=== PATIENT | female | born 1970 | race Caucasian/White ===

== ENCOUNTER → 2016-09-07 | Outpatient (CLI) | payer BC ==
[~2016-09-07] MED LIST: AMT50 PO; ASPI81TA28 PO; ATOR-24 PO; CHOL1000 PO; CHOL200010 PO; CLON0.5T3 PO; FLUT1INH INH; GABA-113 PO; GABA800T PO; IRBE1TAB50 PO; METF-384 PO; NF656 TD; NORT25CA PO; OXYC-57 PO; PARO1TAB29 PO; PREG100C PO; PREG1CAP28 PO; VITA1TAB4 PO; [UNRECOGNIZED DRUG - OTHER] PO
--- NOTE | 2016-09-07 15:59 | MAMMOGRAPHY REPORT ---
BILATERAL DIGITAL DIAGNOSTIC MAMMOGRAM TOMOSYNTHESIS WITH CAD AND TARGETED BILATERAL ULTRASOUND: 09/07 CLINICAL HISTORY: The patient reports a palpable lump in her left breast felt by her physician, edward mortensen has been evaluated previously. The patient reports that it has not changed clinically. TECHNIQUE: Breast tomosynthesis in addition to standard 2D mammography was performed. Current study was also evaluated with a Computer Aided Detection (CAD) system. Bilateral CC and MLO 2-D and shasha synthesis images were obtained. COMPARISON: Comparison is made to exams dated: 12/02/2015 mammogram, 06/02/2015 mammogram, 12/02/2015 ultrasound, 03/09/2011 mammogram, and 03/09/2011 ultrasound - [facility]. BREAST COMPOSITION: There are scattered areas of fibroglandular density in both breasts. FINDINGS: There is an oval circumscribed 7 mm mass seen within the right upper outer quadrant, whic h appears more prominent compared to the 2014 exam. The remainder of both breasts are stable mammog raphically compared to prior exams, without suspicious masses, calcifications, or areas of senior data architect ural distortion noted. Scattered bilateral benign-appearing calcifications are stable. Targeted ultrasound was performed of the right breast in the region of the mammographic mass. In th e right breast at 9:00, 5 cm from the nipple, there is an oval circumscribed anechoic mass with thin internal septations, measuring 5 x 1 x 6 mm. This corresponds with the mammographic mass and is co nsistent with a benign cyst. Targeted ultrasound was performed of the left breast in the region of the palpable lump pointed out by the patient, at 11:30 approximately 8 cm from the nipple. Sonographically normal tissue is seen in this region, without evidence of a mass or other suspicious sonographic abnormality. IMPRESSION: ACR BI-RADS CATEGORY 2: BENIGN, TARGETED ULTRASOUND ACR BI-RADS CATEGORY 2: BENIGN No suspicious mammographic or sonographic abnormality at the site of the palpable left breast lump p ointed out by the patient. There is no mammographic or targeted sonographic evidence of malignancy. Recommend clinical follow-up for the left breast lump, and recommend routine bilateral screening m ammograms in one year. The patient has been verbally notified of the results. Approximately 10% of breast cancers are not detected with mammography. A negative mammographic repor t should not delay biopsy if a clinically suggestive mass is present. Montserrat Matos M.D. ah/:09/07/2016 14:50:08 [employer] Manager: Mikayla REGAN)(Duy), [facility] letter sent: Normal /2 BI-RADS Code: ACR BI-RADS Category 2: Benign Ultrasound BI-RADS: ACR BI-RADS Category 2: Benign
== END | disposition home or self-care (01) ==
LOC: C.MAMM 13:29
PROVIDERS: ATTEND Surgery
DX: N63 Unspecified lump in breast (principal)

== ENCOUNTER 2016-10-24 19:48 | Emergency (ER) | payer BC ==
[~2016-10-24] VITALS: Ht 149.9 cm; Wt 72.0 kg
[~2016-10-24 19:48] MED LIST changes: -AMT50 PO; -CHOL200010 PO; -FLUT1INH INH; -GABA-113 PO; -GABA800T PO; -NF656 TD; -OXYC-57 PO; -PREG100C PO; -VITA1TAB4 PO
[2016-10-24 19:56] VITALS: TEMP 36.7; O2SAT 97; Ht 149.9 cm; Wt 72.0 kg
[2016-10-24] MEDS ORDERED: ONDANSETRON INJ 2 MG/ML 2 ML VIAL IV STA (20:11)
[2016-10-24] MEDS ORDERED: HYDROmorphone INJ 1 MG/ML SYR IV STA (20:11)
[2016-10-24] MEDS ORDERED: SODIUM CHLORIDE 0.9% 1000ML 1,000 ML IV STA (20:11)
[2016-10-24] MEDS ORDERED: KETOROLAC TROMETHAMINE 30 MG/ML VIAL IV STA (20:11)
--- NOTE | 2016-10-24 20:13 | EMERGENCY ROOM VISIT NOTE ---
History Report prepared by Jackie: Jorge Alberto Mondragon Under the Supervision of: Dr. Jem Napoles M.D. First contact with patient: 20:00 Chief Complaint: BACK PAIN Stated Complaint: LOWER BACK PAIN;SHOOTS DOWN BOTH LEGS History of Present Illness The patient is a 46 year old female who presents to the Emergency Room with complaints of persistent lower back pain that started 5 days ago. The patient states that the discomfort radiates down to both feet. The discomfort worsened 2 days ago. She complains of worsening numbness in her hands and feet. The patient has a history of neuropathy and pinched nerves in both her cervical and lumbar spine. However, she states that her discomfort is different than usual since her pain is worse. The patient presented to Fabiola Gonzalez PA-C earlier today who gave her a steroid shot and a prescription for Prednisone and Hydrocodone. The patient notes that these medications have not helped relieve her symptoms at all. Her last dose of Hydrocodone was about 5 hours ago. The patient denies any loss of control of her bowels or bladders. However, she does notice that she seems to be having difficulty passing urine. Source of History: patient Onset: 5 days ago Position: back (lower) Timing: worsening, other (persistent) Associated Symptoms: + numbness (in bilateral hands and feet) Note: Other associated symptoms: radiation to feet, ,difficulty passing urine Denies: loss of control of her bowel or bladder Review of Systems See HPI for pertinent positives & negatives. A total of 10 systems reviewed and were otherwise negative. Past Medical & Surgical Medical Problems: (1) Bulging disc (2) Cervical stenosis of spinal canal (3) Diabetes (4) Hemorrhagic cerebrovascular accident (CVA) Family History No pertinent family history Social History Smoking Status: Current Every Day Smoker Alcohol Use: occasionally Marital Status: Housing Status: lives with significant other Occupation Status: unemployed Current/Historical Medications Scheduled Aspirin (Aspirin Ec), 81 MG PO DAILY Atorvastatin (Lipitor), 1 TAB PO QPM Cholecalciferol (Vitamin D), 1 CAP PO DAILY Irbesartan (Irbesartan), 1 TAB PO DAILY Lidocaine (Lidoderm Patch 5%), 1 PATCH TD DIRECTED Metformin Hcl (Glucophage), 1,000 MG PO BID Nortriptyline (Pamelor), 25 MG PO HS Paroxetine (Paxil), 1 TAB PO DAILY Pregabalin (Lyrica), 100 MG PO TID [forxiga], 1 TAB PO DAILY Scheduled PRN Clonazepam (Klonopin), 0.5 MG PO DAILY PRN for Anxiety Oxycodone/Acetaminophen 5MG/325MG (Percocet 5MG/325MG), 1-2 TAB PO Q4H PRN for Pain Allergies Coded Allergies: Clarithromycin (Verified Allergy, Intermediate, RASH, 10/12/15) Nitrofurantoin (Verified Allergy, Intermediate, HIVES, 10/12/15) Sulfamethoxazole w/Trimethoprim (Verified Allergy, Intermediate, ? reaction, 10/12/15) Physical Exam Vital Signs Date Time Temp Pulse Resp B/P Pulse Ox O2 Delivery O2 Flow Rate FiO2 10/24/16 22:53 88 14 97/57 10/24/16 21:35 76 104/71 10/24/16 19:56 36.7 81 16 147/91 97 Room Air Physical Exam GENERAL: Patient is a healthy-appearing well-nourished HEAD: Normocephalic atraumatic EYES: Ocular movements intact pupils equal and react to light OROPHARYNX mucous membranes are moist no exudates present no erythema or edema present NECK: Supple no nuchal rigidity CHEST: Good equal expansion LUNGS: Clear and equal to auscultation CARDIAC: Normal S1 and S2 ABDOMEN: Soft nontender no guarding BACK: No CVA tenderness EXTREMITIES: No pain upon palpation normal muscle strength in all groups no clubbing cyanosis or edema. NEURO: Patient is following commands is answering questions appropriately. Alert and oriented x3 Cranial Nerves 2-12 grossly intact. Able to walk on tippy- toes and heels. No evidence of saddle anesthesia. Medical Decision & Procedures ER Provider Diagnostic Interpretation: Radiology results as stated below per my review and radiologist interpretation: MRI LUMBAR SPINE W/O CONTRAST CLINICAL HISTORY: Low back pain with bilateral leg radiculopathy. TECHNIQUE: Sagittal and axial T1, T2 and STIR images were obtained. COMPARISON STUDY: No previous studies for comparison. OBSERVATIONS: The vertebral bodies and posterior elements appear intact. There is no abnormal bony signal present to suggest a marrow replacement process. L1-2: No disc protrusions or extrusions. No evidence of spinal canal or neural foraminal compromise. L2-3: No disc protrusions or extrusions. No evidence of spinal canal or neural foraminal compromise. L3-4: No disc protrusions or extrusions. No evidence of spinal canal or neural foraminal compromise. L4-5: There is a circumferential disc bulge. There is mild spinal canal narrowing. There is mild left-sided foraminal narrowing. L5-S1: No disc protrusions or extrusions. No evidence of spinal canal or neural foraminal compromise. The conus medullaris and cauda equina appear normal. IMPRESSION: L4-5 disc bulge with mild spinal canal narrowing and mild left-sided foraminal narrowing. Electronically signed by: Tomy Ashby M.D. 10/24/2016 9:31 PM Dictated Date/Time: 10/24/2016 9:27 PM Medications Administered Medications (Trade) Dose Ordered Sig/Peace Route Start Time Stop Time Status Last Admin Dose Admin Ketorolac Tromethamine 30 mg 30 mg NOW STAT IV 10/24/16 20:11 10/24/16 20:13 DC 10/24/16 20:38 30 MG Sodium Chloride (Nss 1000ml) 1,000 ml @ 999 mls/hr Q1H1M STAT IV 10/24/16 20:11 10/24/16 21:11 DC 10/24/16 20:11 999 MLS/HR Hydromorphone HCl (Dilaudid Inj) 1 mg NOW STAT IV 10/24/16 20:11 10/24/16 20:13 DC 10/24/16 20:39 1 MG Ondansetron HCl (Zofran Inj) 4 mg NOW STAT IV 10/24/16 20:11 10/24/16 20:13 DC 10/24/16 20:38 4 MG Lorazepam (Ativan Inj) 1 mg NOW PRN IV 10/24/16 20:15 10/24/16 23:24 DC 10/24/16 20:39 1 MG Lidocaine (Lidoderm Patch 5%) 1 patch NOW STAT TD 10/24/16 22:14 10/24/16 22:16 DC 10/24/16 22:49 1 PATCH Oxycodone/ Acetaminophen (Percocet 5/ 325MG Home Pack) 1 homepack UD ONCE PO 10/24/16 22:30 10/24/16 22:31 DC 10/24/16 22:48 1 HOMEPACK ED Course 2003: Past medical records reviewed. The patient was evaluated in room A10. A complete history and physical examination was performed. 2011: Ordered Zofran Inj 4 mg IV, Dilaudid Inj 1 mg IV, NSS 1000 ml @ 999 mls/ hr IV, Toradol Inj 30 mg IV. 2014: Ordered Ativan Inj 1 mg IV. 2116: At this time, I reevaluated the patient and she was starting to feel better. 2213: Ordered Lidocaine 1 patch TD. 2229: Ordered Oxycodone. Acetaminophen 1 homepack PO. 2236: Upon reexamination the patient is resting. I discussed results and treatment plan with the patient. She verbalizes agreement and understanding. The patient is ready for discharge. Medical Decision Differential diagnosis: Etiologies such as musculoskeletal, disc herniation, fracture, aortic disease, metastatic disease, cord compression, discitis, infection, renal colic, gastrointestinal, acute exacerbation of chronic back pain, sciatica, cauda equina, as well as others were entertained. This is a 46-year-old female who presents emergency department complaining of bilateral back pain that runs down her legs. I will note that the patient is able to walk on her tiptoes and her heels however she is concerned that she has been having difficulty urinating. Based on this finding the patient was sent for an MRI of her back. This showed a mild disc bulge. The patient was also given Dilaudid and Toradol for the pain as well as Zofran. Repeat examination revealed improvement the patient's symptoms. I do believe that the patient is well enough to be discharged home for follow-up with orthopedics. The patient was given a Lidoderm patch for her lower back I will placed on ibuprofen as well as Percocet. Patient was in agreement with the treatment plan. Impression Primary Impression: Lumbar back pain Additional Impression: Sciatica Scribe Attestation The scribe's documentation has been prepared under my direction and personally reviewed by me in its entirety. I confirm that the note above accurately reflects all work, treatment, procedures, and medical decision making performed by me. Departure Information Dispostion Home / Self-Care Prescriptions Oxycodone/Acetaminophen 5MG/325MG (PERCOCET 5MG/325MG) Tab 1-2 TAB PO Q4H Y for Pain, #14 TAB Prov: Jem Napoles MD 10/24/16 Lidocaine (Lidoderm Patch 5%) 1 Ea Tdsy 1 PATCH TD DIRECTED, #2 PATCH Prov: Jem Napoles MD 10/24/16 Referrals Chetan Owens M.D. (PCP) Forms HOME CARE DOCUMENTATION FORM, IMPORTANT VISIT INFORMATION Patient Instructions Back Pain - [facility], ED Back Care Tips, ED Back Pain Acute Chronic, ED Sciatica, ED Smoking Cessation, Exercises Back Lower Back Stretch, Exercises Back Seated Rotation, My [facility] [employer] Additional Instructions Remove Lidoderm patch in 12 hours (1230 AM) Follow up with DR Almonte's office You received narcotic or benzodiazepene medication while in the emergency room today. Do not drive, operate heavy machinery, or drink alcohol under the influence of this medication. Take 600 mg Ibuprofen every 6 hours Take Percocet for breakthrough pain You have been examined and treated today on an emergency basis only. This is not a substitute for, or an effort to provide, complete comprehensive medical care. It is impossible to recognize and treat all injuries or illnesses in a single emergency department visit. It is therefore important that you follow up closely with Dr Owens. Call as soon as possible for an appointment. Thank you for your time and consideration. I look forward to speaking with you again soon. Please don't hesitate to call us if you have any questions. Problem Qualifiers Primary Impression: Lumbar back pain Chronicity: acute Back pain laterality: bilateral Sciatica presence: with sciatica Sciatica laterality: bilateral sciatica Qualified Codes: M54.42 - Lumbago with sciatica, left side; M54.41 - Lumbago with sciatica, right side Additional Impression: Sciatica Laterality: bilateral Qualified Codes: M54.31 - Sciatica, right side; M54.32 - Sciatica, left side
[2016-10-24] MEDS ORDERED: LORAZEPAM 2 MG/ML 1 ML VIAL IV PRN (20:15)
[2016-10-24] MEDS ORDERED: CHOL200010 PO (20:35)
[2016-10-24] MEDS ORDERED: PREG100C PO (20:38)
--- NOTE | 2016-10-24 21:33 | DIAGNOSTIC IMAGING REPORT ---
MRI LUMBAR SPINE W/O CONTRAST CLINICAL HISTORY: Low back pain with bilateral leg radiculopathy. TECHNIQUE: Sagittal and axial T1, T2 and STIR images were obtained. COMPARISON STUDY: No previous studies for comparison. OBSERVATIONS: The vertebral bodies and posterior elements appear intact. There is no abnormal bony signal present to suggest a marrow replacement process. L1-2: No disc protrusions or extrusions. No evidence of spinal canal or neural foraminal compromise. L2-3: No disc protrusions or extrusions. No evidence of spinal canal or neural foraminal compromise. L3-4: No disc protrusions or extrusions. No evidence of spinal canal or neural foraminal compromise. L4-5: There is a circumferential disc bulge. There is mild spinal canal narrowing. There is mild left-sided foraminal narrowing. L5-S1: No disc protrusions or extrusions. No evidence of spinal canal or neural foraminal compromise. The conus medullaris and cauda equina appear normal. IMPRESSION: L4-5 disc bulge with mild spinal canal narrowing and mild left-sided foraminal narrowing. Electronically signed by: Tomy Ashby M.D. 10/24/2016 9:31 PM Dictated Date/Time: 10/24/2016 9:27 PM
[2016-10-24] MEDS ORDERED: LIDODERM (LIDOCAINE) PATCH 5% TD STA (22:14)
[2016-10-24] MEDS ORDERED: NF656 TD (22:24)
[2016-10-24] MEDS ORDERED: OXYC-57 PO (22:25)
[2016-10-24] MEDS ORDERED: PERCOCET HOME PACK PO ONE (22:30)
[2016-10-24 22:53] VITALS: BP 97/57; PULSE 88
[2016-11-23] MEDS ORDERED: VITA1TAB4 PO (08:48)
[2016-11-23] MEDS ORDERED: FLUT1INH INH (09:19)
[2017-01-06] MEDS ORDERED: GABA-113 PO (10:45)
[2017-02-27] MEDS ORDERED: AMT50 PO (09:09)
== END 2016-10-24 22:50 | disposition home or self-care (01) ==
LOC: C.EDB 19:50 → C.EDA 22:50
DX: M54.5 Low back pain (principal); M54.30 Sciatica, unspecified side; E11.9 Type 2 diabetes mellitus without complications; M48.02 Spinal stenosis, cervical region; F17.200 Nicotine dependence, unspecified, uncomplicated; Z86.73 Personal history of transient ischemic attack (TIA), and cerebral infarction without residual deficits; Z79.82 Long term (current) use of aspirin; Z79.84 Long term (current) use of oral hypoglycemic drugs; Z79.899 Other long term (current) drug therapy; Z88.2 Allergy status to sulfonamides; Z88.3 Allergy status to other anti-infective agents; Z88.8 Allergy status to other drugs, medicaments and biological substances

== ENCOUNTER → 2016-11-03 | Outpatient (CLI) | payer BC ==
[~2016-11-03] MED LIST changes: +AMT50 PO; -CHOL1000 PO; +CHOL200010 PO; +FLUT1INH INH; +GABA-113 PO; +NF656 TD; +OXYC-57 PO; +PREG100C PO; -PREG1CAP28 PO; +VITA1TAB4 PO
--- NOTE | 2016-11-03 16:54 | DIAGNOSTIC IMAGING REPORT ---
CHEST 2 VIEWS ROUTINE HISTORY: J20.9 Acute [id number] COMPARISON: Chest 09/14/2015. FINDINGS: The lungs are clear. Cardiac silhouette is normal in size. No pleural effusions. No pneumothorax. Cervical spinal fusion hardware. IMPRESSION: No acute process. Electronically signed by: Clifton Mancini M.D. 11/03/2016 4:53 PM Dictated Date/Time: 11/03/2016 4:52 PM
== END | disposition home or self-care (01) ==
LOC: C.RAD 15:50
PROVIDERS: ATTEND Physician Assistant Medical
DX: J20.9 Acute bronchitis, unspecified (principal)

== ENCOUNTER → 2016-11-23 | Day surgery (SDC) | payer BC ==
[~2016-11-23] VITALS: Ht 152.4 cm; Wt 70.5 kg
[2016-11-23] VITALS (11 sets, daily range): BP systolic 96–128; BP diastolic 59–80; PULSE 78–100; TEMP 36.6–36.8; O2SAT 92–97; Ht 152.4 cm; Wt 70.5 kg
[~2016-11-23] MED LIST changes: +ACETAMINOPHEN 500 MG TAB PO PRN; +CLONAZEPAM 0.5 MG TAB PO ONE; +NURSING VERBAL MED ORDER ONE
--- NOTE | 2016-11-23 10:22 | Discharge Instructions ---
Discharge Instructions Procedure Procedure Date: November 23, 2016. Reason for visit: Cord Compression, Cervical. Discharge Discharge Date: November 23, 2016. Discharge Diagnosis: neuropathy Instructions Activity Recommendations: 1 Day-May resume regular activity, 48 Hours of decreased exertion, 1 Day with no driving/machine use Return to School/Work: no limitations Recommended Home Diet: Resume Previous Diet Provider Instructions: Lumbar Puncture performed with Fluoroscopic guidance [ L45] level with [ 25] needle. No complications. Cervical myelogram without complication. Allergies Coded Allergies: Clarithromycin (Verified Allergy, Intermediate, RASH, 11/23/16) Nitrofurantoin (Verified Allergy, Intermediate, HIVES, 11/23/16) Sulfamethoxazole w/Trimethoprim (Verified Allergy, Intermediate, hives, ) [place] Recommendations: Call your doctor if: * Temperature above 101 degrees * Pain not relieved by pain medicine ordered * There is increased drainage or redness from any incision * You have any unanswered questions or concerns. Your Doctors Instructions noted above were prepared by provider Familia Vaz. Patient Signature Section: Patient Instructions Signature Page Shonna Long Patient (or Guardian) Signature/Date: I have read and understand the instructions given to me by my caregivers. Caregiver/RN/Doctor Signature/Date: The above-named patient and/or guardian has received patient instructions on this date. + Original Patient Signature Page (only) stays with chart. Please make copy for patient.
--- NOTE | 2016-11-23 10:36 | DIAGNOSTIC IMAGING REPORT ---
Cervical myelogram MYELOGRAM, SUPER/INTER CERVICAL CLINICAL HISTORY: Core compression neuropathy read pain. TECHNIQUE: Following description of procedure and informed consent, a 25-gauge needle was inserted to the L4-L5 level lumbar spine. 10 cc nonionic contrast was injected. FINDINGS: This is followed by imaging of the cervical spine. There is evidence for an anterior fusion from C5 through C7. Routine images of the cervical region showed no significant compromise of the spinal canal. There is a potential very slight disc bulge at C3-C4. There were no complications. COMPARISON STUDY: None IMPRESSION: Successful cervical myelogram. CT is pending. Findings consistent anterior fusion from C5 through C7. No significant compromise of the spinal canal or neural foramina based on routine imaging Electronically signed by: Familia Vaz M.D. 11/23/2016 10:35 AM Dictated Date/Time: 11/23/2016 10:31 AM
--- NOTE | 2016-11-23 10:43 | DIAGNOSTIC IMAGING REPORT ---
CT cervical myelogram CERVICAL SPINE WITH CLINICAL HISTORY: myelogram m47.812 pain. Neuropathy. TECHNIQUE: Transaxial acquisition. Multiple axial reformatted images. Myelography. COMPARISON STUDY: MRI cervical spine dated 03/31/2016 FINDINGS: Findings of an anterior cervical fusion from C5 through C7. Disc spacers are present at C5-C6 and C6-C7. Vertebral body stature is normal throughout. Intervertebral discs are well-preserved. Transaxial images throughout the entire cervical region are considered negative for disc herniation or spinal stenosis. There is no significant foraminal stenosis. IMPRESSION: 1. Operative changes consistent with an anterior cervical fusion from C5 through C7. 2. No evidence of disc herniation or spinal stenosis. 3. Normal postoperative study Electronically signed by: Familia Vaz M.D. 11/23/2016 10:42 AM Dictated Date/Time: 11/23/2016 10:38 AM
== END | disposition home or self-care (01) ==
LOC: C.ACU 08:24
PROVIDERS: ATTEND Orthopaedic Surgery Orthopaedic Surgery of the Spine
DX: M47.812 Spondylosis without myelopathy or radiculopathy, cervical region (principal)

== ENCOUNTER 2017-09-24 10:17 | Emergency (ER) | payer SELFPAY ==
[~2017-09-24] VITALS: Ht 152.4 cm; Wt 72.7 kg
[~2017-09-24 10:17] MED LIST changes: -ACETAMINOPHEN 500 MG TAB PO PRN; -CLONAZEPAM 0.5 MG TAB PO ONE; -NF656 TD; -NORT25CA PO; -NURSING VERBAL MED ORDER ONE; -OXYC-57 PO; -PREG100C PO
[2017-09-24 10:31] VITALS: TEMP 36.9; Ht 152.4 cm; Wt 72.7 kg
[2017-09-24 12:04] LABS: BASO % 0.6 %; BASO ABS # 0.07 K/uL (0-0.2); EOS % 0.6 %; EOS ABS # 0.07 K/uL (0-0.5); HEMATOCRIT 45.2 % (37-47); HEMOGLOBIN 16.5 g/dL (12.0-16.0); IG# 0.04 K/uL (0.00-0.02); LYMPH % 31.1 %; LYMPH ABS # 3.37 K/uL (1.2-3.4); MEAN CELL VOLUME 93.2 fL (80-100); MEAN CORPUSCULAR HGB CONC 36.5 g/dl (32-36); MEAN PLATELET VOLUME 10.6 fL (7.4-10.4); MONO % 5.5 %; NEUT % 61.8 %; NEUT ABS # 6.69 K/uL (1.4-6.5); PLATELET COUNT 200 K/uL (130-400); RED CELL DISTRIBUTION WIDTH SD 44.6 fL (36.4-46.3); WHITE BLOOD COUNT 10.84 K/uL (4.8-10.8)
[2017-09-24] MEDS ORDERED: PARO30TA3 PO (12:15)
[2017-09-24] MEDS ORDERED: MAGN400T6 PO (12:15)
[2017-09-24] MEDS ORDERED: PENI-82 PO (12:15)
[2017-09-24] MEDS ORDERED: LISI20TA3 PO (12:15)
[2017-09-24] MEDS ORDERED: NORT25CA PO (12:15)
[2017-09-24] MEDS ORDERED: CHOL1CAP30 PO (12:15)
[2017-09-24 12:21] LABS: INR 0.9 (0.9-1.1); PTT PATIENT 29.6 SECONDS (21.0-31.0)
[2017-09-24 12:28] LABS: ALBUMIN 3.5 gm/dl (3.4-5.0); CREATININE 0.59 mg/dl (0.60-1.20); POTASSIUM 4.3 mmol/L (3.5-5.1)
[2017-09-24 12:30] LABS: TOTAL PROTEIN 7.7 gm/dl (6.4-8.2)
--- NOTE | 2017-09-24 13:55 | DIAGNOSTIC IMAGING REPORT ---
ORBITS/SELLA/TEMP WITHOUT HISTORY: 47 years-old Female eye pain bilaterally acute bilateral pain COMPARISON: Brain MRI 03/31/2016 TECHNIQUE: Multiple axial CT images of the orbits were obtained without IV contrast. A dose lowering technique was used consistent with the principals of REGINALDO. FINDINGS: Mastoid air cells and middle ear cavities are clear. Minimal right maxillary sinus disease. Moderate sized left jose bullosa. Mild rightward bowing and spurring of the nasal septum. There is no acute facial bone fracture or dislocation identified. Imaged cervical spine appears intact. Degenerative changes are noted at C1-C2. The imaged mandible appears intact. No orbital fracture identified. Imaged mandibular teeth are unremarkable. Imaged intracranial structures demonstrate no acute abnormality. Soft tissues are unremarkable. No evidence of preseptal or postseptal inflammatory changes. The bilateral globes and lacrimal glands are within normal limits. No enlargement of the extraocular musculature. No intraconal or extraconal mass lesions identified. The optic nerves appear unremarkable on this noncontrast study. IMPRESSION: 1. Unremarkable appearance of the bilateral orbits without evidence of focal inflammatory changes. 2. No acute facial bone fracture identified. 3. Minimal right maxillary sinus disease, moderate sized left jose bullosa and rightward nasal septal deviation and spurring incidentally noted. The above report was generated using voice recognition software. It may contain grammatical, syntax or spelling errors. Electronically signed by: Krish Rodriguez M.D. 09/24/2017 1:53 PM Dictated Date/Time: 09/24/2017 1:47 PM
[2017-09-24] MEDS ORDERED: ARTIFICIAL TEARS OP SOLN OP STA (14:23)
--- NOTE | 2017-09-24 14:51 | EMERGENCY ROOM VISIT NOTE ---
History First contact with patient: 10:35 Chief Complaint: EYE ASSESSMENT Stated Complaint: EYE PRESSURE History of Present Illness The patient is a 47 year old female who presents to the Emergency Room via private vehicle accompanied by mail with complaints of "eye pressure". The patient states that she is experiencing eye pain bilaterally. This began yesterday early afternoon. She notes that eyes have been watering some. She notes no change in vision however she cannot look to the lateral aspects of her vision or there is extreme eye pain. There is no fevers or chills. There is no injury or trauma that she is aware of. She describes the pain as an achy sensation that she rates as a 6-7/10 and notes it is behind her eyes. It is worse with looking laterally and superiorly as well as pressing on the superior orbit region. She notes a history of glaucoma which she had surgery in the past. She does not wear contacts, rather she intermittently will wear glasses. No speech difficulty or extremity weakness. Review of Systems A complete 10-point Review of Systems was discussed with the patient, with pertinent positives and negatives listed in the History of Present Illness. All remaining Review of Systems questions can be considered negative unless otherwise specified. Past Medical/Surgical History Medical Problems: (1) Bulging disc (2) Cervical stenosis of spinal canal (3) Diabetes (4) Hemorrhagic cerebrovascular accident (CVA) Family History No pertinent family history Social History Smoking Status: Current Every Day Smoker Alcohol Use: occasionally Marital Status: Housing Status: lives with significant other Occupation Status: unemployed Current/Historical Medications Scheduled Amitriptyline Hcl (Elavil), 50 MG PO HS Aspirin (Aspirin Ec), 81 MG PO DAILY Atorvastatin (Lipitor), 1 TAB PO QPM Cholecalciferol (Vitamin D), 1 CAP PO DAILY Cholecalciferol (Vitamin D3), 400 UNITS PO DAILY Fluticasone Furoate-Vilanterol (Breo Ellipta), 1 PUFF INH DAILY Gabapentin (Neurontin), 300 MG PO TID Irbesartan (Irbesartan), 1 TAB PO DAILY Lisinopril (Prinivil), 20 MG PO DAILY Magnesium Oxide (Mag-Ox), 400 MG PO DAILY Metformin Hcl (Glucophage), 1,000 MG PO BID Nortriptyline (Pamelor), 25 MG PO HS Paroxetine HCl (Paroxetine), 30 MG PO DAILY Penicillin V Potassium (Veetids), 500 MG PO BID Vitamin E (Vitamin E), 1 TAB PO DAILY [forxiga], 1 TAB PO DAILY Scheduled PRN Clonazepam (Klonopin), 0.5 MG PO DAILY PRN for Anxiety Physical Exam Vital Signs Date Time Temp Pulse Resp B/P (MAP) Pulse Ox O2 Delivery O2 Flow Rate FiO2 09/24/17 15:19 78 18 101/68 96 Room Air 09/24/17 14:14 80 16 100/68 95 Room Air 09/24/17 12:33 87 14 113/87 94 Room Air 09/24/17 10:31 36.9 102 20 144/93 95 Room Air Right Eye Acuity: 20/30 Left Eye Acuity: 20/30 Physical Exam VITAL SIGNS - Vital signs and nursing notes were reviewed.Stable. GENERAL - 47-year-old female appearing her stated age who is in no acute distress. Communicates well with provider and answers questions appropriately. SKIN - Without rashes. No meningeal or petechial rash. No Humphrey sign. No herpetic rash on the face. HEAD - NC/AT. EYES - PERRL with EOMI bilaterally. Pain elicited with EOMs laterally and superiorly. She is photophobic. Sclera anicteric. Bulbar conjunctivae does elicit ecchymotic change in the 7 o'clock position in the right eye. There is also a small subconjunctival hemorrhage in this region. Pupil is reactive. Not fixed and dilated. No evidence of trauma. Slit-lamp and pressures as below. EARS - No deformities of external structures noted on gross examination bilaterally. External auditory canals without discharge or otorrhea. Tympanic membranes pearly hunter without retraction or bulging. No fluid or purulent material visualized behind the TM. Handle of malleus, umbo, cone of light, pars tensa/flaccid all easily visualized. NOSE - Midline and without cyanosis. No epistaxis or purulent drainage noted. MOUTH/OROPHARYNX - Without perioral cyanosis. NECK - No nuchal rigidity. LUNGS - Chest wall symmetric without accessory muscle use, intercostals retractions, or central cyanosis. Normal vesicular breath sounds CTA B/L. No wheezes, rales, or rhonchi appreciated. CARDIAC - RRR with S1/S2. No murmur, rubs, or gallops appreciated. NEUROLOGIC - Cranial nerves II through XII grossly intact. PSYCH - A&O. and cooperates fully with examiner. Pt is very pleasant and interacts well with examiner. Slit Lamp Examination was performed of the bilateral eye(s). Alcaine drops were applied to the affected eye(s) for proper anesthetization. The affected eye(s) were stained with Fluorescein stain to precipitate adequate visualization of any conjunctival/scleral excoriations or ulcers. The patient's face was comfortably rested on the chin guard of the slit lamp apparatus. The lights were dimmed and the affected eye(s) were thoroughly examined under microscopy using the blue light. Minimal punctate central axis uptake was present bilaterally. Additionally, the eye(s) were examined under microscopy using the regular light. Close examination revealed redefined chemotic reaction in the right eye, with small subconjunctival hemorrhage and small punctate keratitic reaction in both eyes over the central axis of vision. Patient tolerated the procedure well and no complications were met. An Automated Tonometer was utilized to obtain bilateral orbital pressures. The pressures in the LEFT eye were found to be 20, 20, 22 with an average of 20.7. The pressures in the RIGHT eye were found to be 22, 21, 23 with an average of 22. Patient tolerated the procedure well and no complications were met. Medical Decision & Procedures ER Provider Diagnostic Interpretation: ORBITS/SELLA/TEMP WITHOUT HISTORY: 47 years-old Female eye pain bilaterally acute bilateral pain COMPARISON: Brain MRI 03/31/2016 TECHNIQUE: Multiple axial CT images of the orbits were obtained without IV contrast. A dose lowering technique was used consistent with the principals of ALARA. FINDINGS: Mastoid air cells and middle ear cavities are clear. Minimal right maxillary sinus disease. Moderate sized left jose bullosa. Mild rightward bowing and spurring of the nasal septum. There is no acute facial bone fracture or dislocation identified. Imaged cervical spine appears intact. Degenerative changes are noted at C1-C2. The imaged mandible appears intact. No orbital fracture identified. Imaged mandibular teeth are unremarkable. Imaged intracranial structures demonstrate no acute abnormality. Soft tissues are unremarkable. No evidence of preseptal or postseptal inflammatory changes. The bilateral globes and lacrimal glands are within normal limits. No enlargement of the extraocular musculature. No intraconal or extraconal mass lesions identified. The optic nerves appear unremarkable on this noncontrast study. IMPRESSION: 1. Unremarkable appearance of the bilateral orbits without evidence of focal inflammatory changes. 2. No acute facial bone fracture identified. 3. Minimal right maxillary sinus disease, moderate sized left jose bullosa and rightward nasal septal deviation and spurring incidentally noted. The above report was generated using voice recognition software. It may contain grammatical, syntax or spelling errors. Electronically signed by: Krish Rodriguez M.D. 09/24/2017 1:53 PM Dictated Date/Time: 09/24/2017 1:47 PM Laboratory Results 09/24/17 11:45 Red Blood Count 4.85, Mean Corpuscular Volume 93.2, Mean Corpuscular Hemoglobin 34.0, Mean Corpuscular Hemoglobin Concent 36.5, Mean Platelet Volume 10.6, Neutrophils (%) (Auto) 61.8, Lymphocytes (%) (Auto) 31.1, Monocytes (%) (Auto) 5.5, Eosinophils (%) (Auto) 0.6, Basophils (%) (Auto) 0.6, Neutrophils # (Auto) 6.69, Lymphocytes # (Auto) 3.37, Monocytes # (Auto) 0.60, Eosinophils # (Auto) 0.07, Basophils # (Auto) 0.07 09/24/17 11:45 Test 09/24/17 11:45 White Blood Count 10.84 K/uL (4.8-10.8) Red Blood Count 4.85 M/uL (4.2-5.4) Hemoglobin 16.5 g/dL (12.0-16.0) Hematocrit 45.2 % (37-47) Mean Corpuscular Volume 93.2 fL (80-100) Mean Corpuscular Hemoglobin 34.0 pg (25-34) Mean Corpuscular Hemoglobin Concent 36.5 g/dl (32-36) Platelet Count 200 K/uL (130-400) Mean Platelet Volume 10.6 fL (7.4-10.4) Neutrophils (%) (Auto) 61.8 % Lymphocytes (%) (Auto) 31.1 % Monocytes (%) (Auto) 5.5 % Eosinophils (%) (Auto) 0.6 % Basophils (%) (Auto) 0.6 % Neutrophils # (Auto) 6.69 K/uL (1.4-6.5) Lymphocytes # (Auto) 3.37 K/uL (1.2-3.4) Monocytes # (Auto) 0.60 K/uL (0.11-0.59) Eosinophils # (Auto) 0.07 K/uL (0-0.5) Basophils # (Auto) 0.07 K/uL (0-0.2) RDW Standard Deviation 44.6 fL (36.4-46.3) RDW Coefficient of Variation 13.0 % (11.5-14.5) Immature Granulocyte % (Auto) 0.4 % Immature Granulocyte # (Auto) 0.04 K/uL (0.00-0.02) Erythrocyte Sedimentation Rate 46 mm/hr (0-21) Prothrombin Time 9.8 SECONDS (9.0-12.0) Prothromb Time International Ratio 0.9 (0.9-1.1) Activated Partial Thromboplast Time 29.6 SECONDS (21.0-31.0) Partial Thromboplastin Ratio 1.1 Anion Gap 9.0 mmol/L (3-11) Est Creatinine Clear Calc Drug Dose 103.8 ml/min Estimated GFR () 125.6 Estimated GFR (Non- 108.4 BUN/Creatinine Ratio 14.6 (10-20) Calcium Level 9.0 mg/dl (8.5-10.1) Total Bilirubin 0.3 mg/dl (0.2-1) Aspartate Amino Transf (AST/SGOT) 15 U/L (15-37) Alanine Aminotransferase (ALT/SGPT) 19 U/L (12-78) Alkaline Phosphatase 128 U/L (45-117) C-Reactive Protein 2.47 mg/dl (0-0.29) Total Protein 7.7 gm/dl (6.4-8.2) Albumin 3.5 gm/dl (3.4-5.0) Globulin 4.2 gm/dl (2.5-4.0) Albumin/Globulin Ratio 0.8 (0.9-2) Medications Administered Medications (Trade) Dose Ordered Sig/Peace Route Start Time Stop Time Status Last Admin Dose Admin Artificial Tears (Artificial Tears) 1 drops NOW STAT OP 09/24/17 14:23 09/24/17 14:24 DC 09/24/17 14:38 1 DROPS Medical Decision Patient was seen and evaluated as above in room B10. She presents to us today with bilateral eye pain. She is nontoxic on exam. She declined pain meds. Review was performed of nursing notes and vital signs. After obtaining a thorough history and physical examination the above work up was performed. Pressure was obtained from the eyes as well as a slit-lamp. This revealed a small punctate keratitis. Otherwise the small subconjunctival hemorrhage and small chemotic reaction is likely of little significance. Visual acuity is excellent. Decision was made to obtain baseline labs. No significant leukocytosis or anemia. Minimal leukocytosis at 10.24. ESR is high at 46, coags normal. Metabolic panel does reveal slight hyponatremia at 135. No evidence of kidney or liver failure. Patient's C-reactive protein is elevated at 2.47. The patient does have an underlying rheumatologic condition of which I favor to be the cause of this inflammatory marker elevation. I did discuss the case with the attending physician, and subsequently the on-call porcelain enamel repairer Dr. Osorio at 2:20 PM. We discussed the case. It was recommended to try lubricating drops. She is to follow with ophthalmology or her establish eye doctor tomorrow if the symptoms persist. I do not believe there is any emergent cause to her pain. It is likely that because she only slept 2 hours last night as possible that she could have slept in the eyelids were slightly open and that is the cause of the slight punctate keratitis and eye pain. No acute findings. Incidental's on the CT scan I do not believe to be of any clinical significance. The patient was educated upon management, had questions answered prior to discharge, and was discharged home in good condition. Case was discussed with the attending physician. In the evaluation and treatment of this patient, the following differential diagnoses were considered: Corneal Abrasion, Conjunctivitis, Eye Contusion, Globe Injury, Orbital Floor Injury (Blowout Fracture), Corneal Ulcer, Keratitis , Herpes Zoster Opthalmic, Blepharitis, Orbital Cellulitis, Iritis, Scleritis/ Episcleritis, Uveitis, Temporal Arteritis, Subconjunctival Hemorrhage. Impression Primary Impression: Eye pain Departure Information Dispostion Home / Self-Care Condition GOOD Referrals Chetan Owens M.D. (PCP) Chris Osorio M.D. Patient Instructions [facility] Additional Instructions You have been treated in the Emergency Department for eye pain. Please use the artificial tears 1 drop in both eyes every few hours. If this persists until tomorrow please call your eye doctor or Dr. Osorio. When you call Dr. Osorio's office please let them know that we spoke with him here. For pain control, you can use the following [id number] medicines (if >12 yo): - Regular strength (325mg/tab) Tylenol (acetaminophen) 2 tabs every 4-6 hours as needed. Do not exceed 12 tablets in a 24 hour period. Avoid taking more than 3 grams (3000 mg) of Tylenol per day. This includes any other sources of acetaminophen you may take on a regular basis. - Regular strength (200 mg/tab) Advil (ibuprofen) 1-2 tabs every 4-6 hours as needed. Do not exceed a dose of 3200 mg per day. Avoid rubbing your eyes for the next few days as this can cause irritation. Wear sunglasses when outside to help minimize your pain. You should relax in a quiet, dark room to help minimize your symptoms. Return to the emergency department if you develop the following symptoms despite treatment course outlined above: blurry vision, loss of vision, fever, intractable pain, increased redness, swelling, or purulent discharge.
[2017-09-24 15:19] VITALS: BP 101/68; PULSE 78; O2SAT 96
== END 2017-09-24 14:57 | disposition home or self-care (01) ==
LOC: C.EDB 10:18
DX: H16.143 Punctate keratitis, bilateral (principal); F17.200 Nicotine dependence, unspecified, uncomplicated; Z79.82 Long term (current) use of aspirin; Z79.51 Long term (current) use of inhaled steroids; Z79.84 Long term (current) use of oral hypoglycemic drugs; E11.9 Type 2 diabetes mellitus without complications